=== PATIENT | female | born 1965 | race African-American/Black ===

== ENCOUNTER 2024-04-22 08:40 | Outpatient (CLI) | payer OTHER ==
[2024-04-22] MEDS ORDERED: Iopamidol 370 76% 100 ML VIAL ONE (09:56)
== END 2024-04-22 08:41 | disposition home or self-care (01) ==
LOC: CSHCT 08:40
PROVIDERS: ATTEND Surgery
DX: R19.00 Intra-abdominal and pelvic swelling, mass and lump, unspecified site (principal); D25.9 Leiomyoma of uterus, unspecified
CPT/HCPCS: 74177; Q9967